=== PATIENT | female | born 1955 | race Hispanic/Latino ===

== ENCOUNTER 2017-04-09 08:07 | Outpatient (CLI) | payer OTHER ==
[2017-04-09] MEDS ORDERED: XYLOCAINE TOPICAL 4% TP ONE ×2 (08:31→09:07)
== END 2017-04-09 08:08 | disposition home or self-care (01) ==
LOC: WOUND 08:07
PROVIDERS: ATTEND Surgery
DX: S71.101A Unspecified open wound, right thigh, initial encounter (principal); I10 Essential (primary) hypertension; E05.90 Thyrotoxicosis, unspecified without thyrotoxic crisis or storm; Z87.891 Personal history of nicotine dependence; X58.XXXA Exposure to other specified factors, initial encounter; Y93.89 Activity, other specified; Y92.89 Other specified places as the place of occurrence of the external cause; Y99.8 Other external cause status
CPT/HCPCS: 11042; 11045; 97606; G0463

== ENCOUNTER 2017-04-16 08:07 | Outpatient (CLI) | payer OTHER ==
[2017-04-16] MEDS ORDERED: XYLOCAINE TOPICAL 4% TP ONE ×2 (08:43→09:00)
[2017-04-16] MEDS ORDERED: XYLOCAINE TOPICAL 2% TP ONE ×2 (08:43→09:00)
[2017-04-16] MEDS ORDERED: SILVER NITRATE TP ONE ×2 (09:13→09:57)
== END 2017-04-16 08:08 | disposition home or self-care (01) ==
LOC: WOUND 08:07
PROVIDERS: ATTEND Surgery
DX: S71.101A Unspecified open wound, right thigh, initial encounter (principal); E11.9 Type 2 diabetes mellitus without complications; I10 Essential (primary) hypertension; Z87.891 Personal history of nicotine dependence; X58.XXXA Exposure to other specified factors, initial encounter; Y93.89 Activity, other specified; Y92.89 Other specified places as the place of occurrence of the external cause; Y99.8 Other external cause status
CPT/HCPCS: 17250; 97606

== ENCOUNTER 2017-04-23 08:15 | Outpatient (CLI) | payer OTHER ==
[2017-04-23] MEDS ORDERED: XYLOCAINE TOPICAL 4% TP ONE (08:32)
[2017-04-23] MEDS ORDERED: XYLOCAINE TOPICAL 2% TP ONE (08:33)
[2017-04-23] MEDS ORDERED: SILVER NITRATE TP ONE (08:51)
== END 2017-04-23 08:16 | disposition home or self-care (01) ==
LOC: WOUND 08:15
PROVIDERS: ATTEND Surgery
DX: S71.101D Unspecified open wound, right thigh, subsequent encounter (principal); I10 Essential (primary) hypertension; E11.9 Type 2 diabetes mellitus without complications; E03.9 Hypothyroidism, unspecified; Z87.891 Personal history of nicotine dependence; X58.XXXD Exposure to other specified factors, subsequent encounter
CPT/HCPCS: 97606

== ENCOUNTER 2017-04-30 13:49 | Outpatient (CLI) | payer OTHER ==
[2017-04-30] MEDS ORDERED: XYLOCAINE TOPICAL 4% TP ONE (14:09)
[2017-04-30] MEDS ORDERED: SILVER NITRATE TP ONE (14:40)
== END 2017-04-30 13:50 | disposition home or self-care (01) ==
LOC: WOUND 13:49
PROVIDERS: ATTEND Surgery
DX: S71.101D Unspecified open wound, right thigh, subsequent encounter (principal); I10 Essential (primary) hypertension; E05.90 Thyrotoxicosis, unspecified without thyrotoxic crisis or storm; Z87.891 Personal history of nicotine dependence; X58.XXXD Exposure to other specified factors, subsequent encounter
CPT/HCPCS: 97606

== ENCOUNTER 2017-05-14 08:01 | Outpatient (CLI) | payer OTHER ==
[2017-05-14] MEDS ORDERED: XYLOCAINE TOPICAL 2% ONE (08:23)
[2017-05-14] MEDS ORDERED: XYLOCAINE TOPICAL 4% TP ONE ×2 (08:23→08:28)
[2017-05-14] MEDS ORDERED: XYLOCAINE TOPICAL 2% TP ONE (08:28)
== END 2017-05-14 08:02 | disposition home or self-care (01) ==
LOC: WOUND 08:01
PROVIDERS: ATTEND Surgery
DX: S71.101D Unspecified open wound, right thigh, subsequent encounter (principal); I10 Essential (primary) hypertension; E05.90 Thyrotoxicosis, unspecified without thyrotoxic crisis or storm; Z87.891 Personal history of nicotine dependence; X58.XXXD Exposure to other specified factors, subsequent encounter

== ENCOUNTER 2017-05-21 08:18 | Outpatient (CLI) | payer OTHER ==
[2017-05-21] MEDS ORDERED: SILVER NITRATE TP ONE ×2 (08:49→09:05)
== END 2017-05-21 08:19 | disposition home or self-care (01) ==
LOC: WOUND 08:18
PROVIDERS: ATTEND Surgery
DX: S71.101D Unspecified open wound, right thigh, subsequent encounter (principal); I10 Essential (primary) hypertension; E11.9 Type 2 diabetes mellitus without complications; E05.90 Thyrotoxicosis, unspecified without thyrotoxic crisis or storm; Z87.891 Personal history of nicotine dependence; X58.XXXD Exposure to other specified factors, subsequent encounter
CPT/HCPCS: 97597; 97598

== ENCOUNTER 2017-05-28 08:18 | Outpatient (CLI) | payer OTHER ==
[2017-05-28] MEDS ORDERED: XYLOCAINE TOPICAL 4% TP ONE (08:49)
[2017-05-28] MEDS ORDERED: SODIUM CHLORIDE FLUSH SYRINGE 10 ML IV ONE (09:04)
[2017-05-28] MEDS ORDERED: SILVER NITRATE TP ONE (09:08)
== END 2017-05-28 08:19 | disposition home or self-care (01) ==
LOC: WOUND 08:18
PROVIDERS: ATTEND Surgery
DX: S71.101D Unspecified open wound, right thigh, subsequent encounter (principal); E11.9 Type 2 diabetes mellitus without complications; I10 Essential (primary) hypertension; E03.9 Hypothyroidism, unspecified; Z87.891 Personal history of nicotine dependence; X58.XXXD Exposure to other specified factors, subsequent encounter
CPT/HCPCS: 17250

== ENCOUNTER 2017-06-04 08:18 | Outpatient (CLI) | payer OTHER ==
[2017-06-04] MEDS ORDERED: XYLOCAINE TOPICAL 4% TP ONE ×2 (08:31→08:45)
[2017-06-04] MEDS ORDERED: SODIUM CHLORIDE FLUSH SYRINGE 10 ML IV ONE ×3 (08:58→09:02)
== END 2017-06-04 08:19 | disposition home or self-care (01) ==
LOC: WOUND 08:18
PROVIDERS: ATTEND Surgery
DX: S71.101D Unspecified open wound, right thigh, subsequent encounter (principal); E11.9 Type 2 diabetes mellitus without complications; E03.9 Hypothyroidism, unspecified; I10 Essential (primary) hypertension; Z87.891 Personal history of nicotine dependence; X58.XXXD Exposure to other specified factors, subsequent encounter
CPT/HCPCS: 15271; Q4158

== ENCOUNTER 2017-06-11 08:05 | Outpatient (CLI) | payer OTHER ==
[2017-06-11] MEDS ORDERED: XYLOCAINE TOPICAL 4% TP ONE ×2 (08:26→08:40)
[2017-06-11] MEDS ORDERED: NACL 0.9% IR PRN ×2 (08:41→16:15)
[2017-06-11] MEDS ORDERED: SILVER NITRATE TP ONE ×2 (08:47→16:15)
== END 2017-06-11 08:06 | disposition home or self-care (01) ==
LOC: WOUND 08:05
PROVIDERS: ATTEND Surgery
DX: S71.101D Unspecified open wound, right thigh, subsequent encounter (principal); E11.9 Type 2 diabetes mellitus without complications; E05.90 Thyrotoxicosis, unspecified without thyrotoxic crisis or storm; I10 Essential (primary) hypertension; Z87.891 Personal history of nicotine dependence; X58.XXXD Exposure to other specified factors, subsequent encounter

== ENCOUNTER 2017-06-18 13:10 | Outpatient (CLI) | payer OTHER ==
[2017-06-18] MEDS ORDERED: XYLOCAINE TOPICAL 4% TP ONE (13:52)
[2017-06-18] MEDS ORDERED: SILVER NITRATE TP ONE ×3 (14:12→14:46)
== END 2017-06-18 13:11 | disposition home or self-care (01) ==
LOC: WOUND 13:10
PROVIDERS: ATTEND Surgery
DX: S71.101D Unspecified open wound, right thigh, subsequent encounter (principal); E11.9 Type 2 diabetes mellitus without complications; I10 Essential (primary) hypertension; E05.90 Thyrotoxicosis, unspecified without thyrotoxic crisis or storm; Z87.891 Personal history of nicotine dependence; X58.XXXD Exposure to other specified factors, subsequent encounter

== ENCOUNTER 2017-06-25 09:35 | Outpatient (CLI) | payer OTHER ==
[2017-06-25] MEDS ORDERED: XYLOCAINE TOPICAL 4% TP ONE ×2 (10:14→11:59)
[2017-06-25] MEDS ORDERED: SILVER NITRATE TP ONE ×2 (10:45→11:58)
== END 2017-06-25 09:36 | disposition home or self-care (01) ==
LOC: WOUND 09:35
PROVIDERS: ATTEND Surgery
DX: S71.101D Unspecified open wound, right thigh, subsequent encounter (principal); I10 Essential (primary) hypertension; E05.90 Thyrotoxicosis, unspecified without thyrotoxic crisis or storm; Z87.891 Personal history of nicotine dependence; X58.XXXD Exposure to other specified factors, subsequent encounter
CPT/HCPCS: 17250

== ENCOUNTER 2017-07-02 08:23 | Outpatient (CLI) | payer OTHER ==
[2017-07-02] MEDS ORDERED: XYLOCAINE TOPICAL 4% TP ONE ×2 (08:30→08:36)
== END 2017-07-02 08:24 | disposition home or self-care (01) ==
LOC: WOUND 08:23
PROVIDERS: ATTEND Surgery
DX: S71.101D Unspecified open wound, right thigh, subsequent encounter (principal); I10 Essential (primary) hypertension; E05.90 Thyrotoxicosis, unspecified without thyrotoxic crisis or storm; Z87.891 Personal history of nicotine dependence; X58.XXXD Exposure to other specified factors, subsequent encounter

== ENCOUNTER 2017-07-10 13:59 | Outpatient (CLI) | payer OTHER ==
[2017-07-10] MEDS ORDERED: XYLOCAINE TOPICAL 4% TP ONE ×2 (14:15→14:20)
== END 2017-07-10 14:00 | disposition home or self-care (01) ==
LOC: WOUND 13:59
PROVIDERS: ATTEND Surgery
DX: S81.001D Unspecified open wound, right knee, subsequent encounter (principal); E05.90 Thyrotoxicosis, unspecified without thyrotoxic crisis or storm; I10 Essential (primary) hypertension; Z87.891 Personal history of nicotine dependence; X58.XXXD Exposure to other specified factors, subsequent encounter

== ENCOUNTER 2017-07-16 08:23 | Outpatient (CLI) | payer OTHER ==
[2017-07-16] MEDS ORDERED: XYLOCAINE TOPICAL 4% TP ONE (08:44)
[2017-07-16] MEDS ORDERED: SODIUM CHLORIDE FLUSH SYRINGE 10 ML IV ONE ×2 (08:58→12:03)
== END 2017-07-16 08:24 | disposition home or self-care (01) ==
LOC: WOUND 08:23
PROVIDERS: ATTEND Surgery
DX: S81.001D Unspecified open wound, right knee, subsequent encounter (principal); E11.9 Type 2 diabetes mellitus without complications; I10 Essential (primary) hypertension; E05.90 Thyrotoxicosis, unspecified without thyrotoxic crisis or storm; Z87.891 Personal history of nicotine dependence; X58.XXXD Exposure to other specified factors, subsequent encounter
CPT/HCPCS: 15277; Q4158

== ENCOUNTER 2017-07-23 08:56 | Outpatient (CLI) | payer OTHER ==
[~2017-07-23 08:56] MED LIST: XYLOCAINE TOPICAL 4% TP ONE
[2017-07-23] MEDS ORDERED: SODIUM CHLORIDE FLUSH SYRINGE 10 ML IV ONE ×2 (09:16→09:33)
[2017-07-23] MEDS ORDERED: SILVER NITRATE TP ONE (09:33)
[2017-07-23] MEDS ORDERED: AD OINTMENT TP SCH (10:00)
== END 2017-07-23 08:57 | disposition home or self-care (01) ==
LOC: WOUND 08:56
PROVIDERS: ATTEND Surgery
DX: S81.001D Unspecified open wound, right knee, subsequent encounter (principal); E11.9 Type 2 diabetes mellitus without complications; I10 Essential (primary) hypertension; E05.90 Thyrotoxicosis, unspecified without thyrotoxic crisis or storm; Z87.891 Personal history of nicotine dependence; X58.XXXD Exposure to other specified factors, subsequent encounter
CPT/HCPCS: 17250; A6250

== ENCOUNTER 2017-07-30 08:33 | Outpatient (CLI) | payer OTHER ==
[2017-07-30] MEDS ORDERED: XYLOCAINE TOPICAL 4% TP ONE (08:41)
[2017-07-30] MEDS ORDERED: SILVER NITRATE TP ONE ×2 (09:05→10:11)
== END 2017-07-30 08:34 | disposition home or self-care (01) ==
LOC: WOUND 08:33
PROVIDERS: ATTEND Surgery
DX: S81.001D Unspecified open wound, right knee, subsequent encounter (principal); E11.9 Type 2 diabetes mellitus without complications; I10 Essential (primary) hypertension; E05.90 Thyrotoxicosis, unspecified without thyrotoxic crisis or storm; Z87.891 Personal history of nicotine dependence; X58.XXXD Exposure to other specified factors, subsequent encounter
CPT/HCPCS: 97597

== ENCOUNTER 2017-08-07 08:20 | Outpatient (CLI) | payer OTHER ==
[2017-08-07] MEDS ORDERED: XYLOCAINE TOPICAL 4% TP ONE (09:43)
[2017-08-07] MEDS ORDERED: SODIUM CHLORIDE FLUSH SYRINGE 10 ML IV ONE (10:08)
[2017-08-07] MEDS ORDERED: SODIUM CHLORIDE FLUSH SYRINGE 10 ML IV PRN (11:04)
== END 2017-08-07 08:21 | disposition home or self-care (01) ==
LOC: WOUND 08:20
PROVIDERS: ATTEND Surgery
DX: S81.001D Unspecified open wound, right knee, subsequent encounter (principal); E11.9 Type 2 diabetes mellitus without complications; I10 Essential (primary) hypertension; E05.90 Thyrotoxicosis, unspecified without thyrotoxic crisis or storm; Z87.891 Personal history of nicotine dependence; X58.XXXD Exposure to other specified factors, subsequent encounter
CPT/HCPCS: 15271; Q4158; 15277

== ENCOUNTER 2017-08-13 08:34 | Outpatient (CLI) | payer OTHER ==
[2017-08-13] MEDS ORDERED: XYLOCAINE TOPICAL 4% TP ONE ×2 (08:55→08:57)
[2017-08-13] MEDS ORDERED: SODIUM CHLORIDE FLUSH SYRINGE 10 ML IV ONE ×2 (09:12→14:11)
== END 2017-08-13 08:35 | disposition home or self-care (01) ==
LOC: WOUND 08:34
PROVIDERS: ATTEND Surgery
DX: S81.001D Unspecified open wound, right knee, subsequent encounter (principal); E05.90 Thyrotoxicosis, unspecified without thyrotoxic crisis or storm; E11.9 Type 2 diabetes mellitus without complications; I10 Essential (primary) hypertension; Z87.891 Personal history of nicotine dependence; X58.XXXD Exposure to other specified factors, subsequent encounter
CPT/HCPCS: 15277; Q4158

== ENCOUNTER 2017-08-20 08:26 | Outpatient (CLI) | payer OTHER ==
[2017-08-20] MEDS ORDERED: XYLOCAINE TOPICAL 4% TP ONE ×2 (08:44→08:47)
[2017-08-20] MEDS ORDERED: SILVER NITRATE TP ONE (09:02)
== END 2017-08-20 08:27 | disposition home or self-care (01) ==
LOC: WOUND 08:26
PROVIDERS: ATTEND Surgery
DX: S81.001D Unspecified open wound, right knee, subsequent encounter (principal); E11.9 Type 2 diabetes mellitus without complications; I10 Essential (primary) hypertension; E05.90 Thyrotoxicosis, unspecified without thyrotoxic crisis or storm; Z87.891 Personal history of nicotine dependence; X58.XXXD Exposure to other specified factors, subsequent encounter
CPT/HCPCS: 17250

== ENCOUNTER 2017-08-28 08:05 | Outpatient (CLI) | payer OTHER ==
[2017-08-28] MEDS ORDERED: XYLOCAINE TOPICAL 4% TP ONE (08:21)
== END 2017-08-28 08:06 | disposition home or self-care (01) ==
LOC: WOUND 08:05
PROVIDERS: ATTEND Surgery
DX: S81.001D Unspecified open wound, right knee, subsequent encounter (principal); E11.9 Type 2 diabetes mellitus without complications; I10 Essential (primary) hypertension; E05.90 Thyrotoxicosis, unspecified without thyrotoxic crisis or storm; Z87.891 Personal history of nicotine dependence; X58.XXXD Exposure to other specified factors, subsequent encounter

== ENCOUNTER 2017-09-03 08:42 | Outpatient (CLI) | payer OTHER ==
[2017-09-03] MEDS ORDERED: XYLOCAINE TOPICAL 4% TP ONE (09:09)
== END 2017-09-03 08:43 | disposition home or self-care (01) ==
LOC: WOUND 08:42
PROVIDERS: ATTEND Surgery
DX: S81.001D Unspecified open wound, right knee, subsequent encounter (principal); I10 Essential (primary) hypertension; E05.90 Thyrotoxicosis, unspecified without thyrotoxic crisis or storm; Z87.891 Personal history of nicotine dependence; X58.XXXD Exposure to other specified factors, subsequent encounter

== ENCOUNTER 2017-09-16 12:38 | Outpatient (CLI) | payer OTHER ==
--- NOTE | 2017-09-16 14:15 | XRay Report ---
ROUTINE CHEST, TWO VIEWS: HISTORY: Wheezing. No comparison. There is mild hyperinflation. Correlate for history of smoking. No evidence for infiltrate, mass, pleural effusion or pneumothorax. Heart and mediastinal structures are within normal limits. The bony structures are intact. IMPRESSION: Mild hyperinflation. No acute process.
== END 2017-09-16 12:39 | disposition home or self-care (01) ==
LOC: XRAY 12:38
PROVIDERS: ATTEND Internal Medicine
DX: J98.11 Atelectasis (principal)
CPT/HCPCS: 71046

== ENCOUNTER 2017-09-17 13:29 | Outpatient (CLI) | payer OTHER ==
[2017-09-17] MEDS ORDERED: XYLOCAINE TOPICAL 4% TP ONE (14:03)
== END 2017-09-17 13:30 | disposition home or self-care (01) ==
LOC: WOUND 13:29
PROVIDERS: ATTEND Surgery
DX: S81.001D Unspecified open wound, right knee, subsequent encounter (principal); E11.9 Type 2 diabetes mellitus without complications; I10 Essential (primary) hypertension; E05.90 Thyrotoxicosis, unspecified without thyrotoxic crisis or storm; Z87.891 Personal history of nicotine dependence; X58.XXXD Exposure to other specified factors, subsequent encounter
CPT/HCPCS: 99213; G0463

== ENCOUNTER 2018-09-05 11:42 | Outpatient (CLI) | payer OTHER ==
--- NOTE | 2018-09-05 14:25 | Mammography Report ---
BILATERAL DIGITAL SCREENING MAMMOGRAM with CAD: 09/05/18 11:42:00 CLINICAL: Routine screening. COMPARISON:None available. FINDINGS: The breasts are heterogeneously dense, which may obscure small masses. No mass, architectural distortion or suspicious calcifications. IMPRESSION: No mammographic evidence of malignancy. BI-RADS CATEGORY: 1 - - Negative RECOMMENDATION: Routine mammographic screening in one year. COMMENT: Patient follow-up letters are generated by our [employer] application.
== END 2018-09-05 11:43 | disposition home or self-care (01) ==
LOC: SPVWC 11:42
PROVIDERS: ATTEND Internal Medicine
DX: Z12.31 Encounter for screening mammogram for malignant neoplasm of breast (principal); I10 Essential (primary) hypertension; J44.9 Chronic obstructive pulmonary disease, unspecified; E11.9 Type 2 diabetes mellitus without complications; E03.9 Hypothyroidism, unspecified; Z87.891 Personal history of nicotine dependence
CPT/HCPCS: 77067